=== PATIENT | male | born 1945 | race Caucasian/White ===

== ENCOUNTER 2018-10-20 04:56 | Outpatient (CLI) | payer MEDICARE, BC ==
[~2018-10-20] VITALS: Ht 195.6 cm; Wt 122.5 kg
--- NOTE | ~2018-10-20 | HEMODYNAMI ---
PATIENT:ABRAN RUCKER MEDICAL RECORD: [id number] : 49 LOCATION:[facility] D.2124 ADMISSION DATE: 10/20/18 Generatedon:10/20/201810:53 Patient name: ABRAN RUCKER Patient #: [id number] SSN: : 1945 Date of study: 10/20/2018 Page: Of Hemodynamic Procedure Report Patient Data Patient Demographics Procedure consent was obtained First Name: ABRAN Gender: Male Last Name: ALKA : 1945 [facility] Initial: B Age: 72 year(s) Patient #: [id number] Race: Unknown Additional ID: [id number] Contact details Address: [facility] [address] State: [place] City: [place] Zip code: [address] Admission Admission Data Admission Date: 10/20/2018 Admission Time: 5:33 Room #: D.2124 Lab Results Lab Result Date: 10/20/2018 Lab Result Time: 0:00 Biochemistry Name Units Result Min Max BUN mg/dl 15 --(--*-)-- 7 18 Creatinine mg/dl 1.1 --(--*-)-- 0.6 1.3 eGFR ml/min 70.20700 *-(----)-- 90 120 NONAFRICAN CBC Name Units Result Min Max Hematocrit % 40.3 -*(----)-- 42 54 Hemoglobin g/dl 13.5 --(*---)-- 13.5 17.5 Procedure Procedure Types Cath Procedure Diagnostic Procedure LHC LHC w/Coronaries FFR/IVUS FFR Initial FFR Additional PCI Procedure Coronary Stent Coronary Stent Initial Procedure Description Procedure Date Procedure Date: 10/20/2018 Procedure Start Time: 10:33 Procedure End Time: 10:50 Procedure Staff Name Function Abdiel Grier MD Performing Physician Dimitrios Bowen RT Monitor Raven Gaffney RT Scrub Kenisha Jean-Baptiste RN Nurse Procedure Data Cath Procedure Fluoroscopy Diagnostic fluoroscopy Total fluoroscopy Time: 4.1 time: 4.1 min min Diagnostic fluoroscopy Total fluoroscopy dose: 768 dose: 768 mGy mGy Contrast Material Contrast Material Type Amount (ml) Isovue 300 70 Entry Location Entry Primary Successful Side Size Upsize Upsize Entry Closure [place] ccessful Closure Location (Fr) 1 (Fr) 2 (Fr) Remarks Device Remarks Radial Right 6 Fr Mechanical artery Short Compression Estimated blood loss: 10 ml Diagnostic catheters Device Type Used For End Catheter Placement DIAGNOSTIC [place] 110cm 5 Procedure Fr catheter ([id number]) Procedure Complications No complications Procedure Medications Medication Administration Route Dosage 0.9% NaCl I.V. 100 ml/hr Oxygen etCO2 Nasal cannula 2 l/min Lidocaine 2% added to field 20 Heparin Flush Bag added to field 2 bags (1000units/500ml NS) Radial Cocktail added to field 1 syringe (Verapamil 2mg/Nitro 400mcg/Heparin 1500units) Versed I.V. 2 mg Fentanyl I.V. 50 mcg Heparin Bolus I.V. 4000 units Versed I.V. 2 mg Fentanyl I.V. 50 mcg Hemodynamics Rest HGB: 13.5 (g/dl) Heart Rate: 65 (bpm) Pressure Samples Time Site Value (mmHg) Purpose Heart Use Rate(bpm) 10:42 AO 133/80(104) Snapshot 68 Snapshots Pre Cath Intra NCS Post Cath Vital Signs Time Heart Resp SPO2 etCO2 NIBP (mmHg) Rhythm Pain Sedation Rate (ipm) (%) (mmHg) Status Level (bpm) 10:21:48 66 17 100 38.2 180/96(139) NSR 0 (11) 10(A) , No pain 10:26:25 65 16 100 32.2 169/99(125) NSR 0 (11) 10(A) , No pain 10:30:53 63 14 97 41.2 156/84(133) NSR 0 (11) 10(A) , No pain 10:35:17 64 15 97 39.7 143/84(123) NSR 0 (11) 10(A) , No pain 10:39:35 70 12 98 38.9 138/77(109) NSR 0 (11) 9(A) , No pain 10:43:55 68 14 97 42.7 146/81(117) NSR 0 (11) 9(A) , No pain 10:48:15 66 15 98 36.7 136/85(105) NSR 0 (11) 10(A) , No pain Medications Time Medication Route Dose Verified Delivered Reason Not es Effectiveness by by 10:20:36 0.9% NaCl I.V. 100 Abdiel Kenisha used for ml/hr Cherrie Jean-Baptiste instrument tech 10:20:42 Oxygen etCO2 2 l/min Abdiel Kenisha used for Nasal Cherrie Jean-Baptiste procedure cannula RN 10:20:47 Lidocaine 2% added 20ml Abdiel Abdiel for local to vial Cherrie Grier MD anesthetic field 10:20:52 Heparin Flush added 2 bags Abdiel Abdiel used for Bag to Cherrie Grier MD procedure (1000units/500ml field NS) 10:20:57 Radial Cocktail added 1 Abdiel Abdiel used for (Verapamil to syringe Cherrie Grier MD procedure 2mg/Nitro field 400mcg/Heparin 1500units) 10:32:37 Versed I.V. 2 mg Abdiel Kenisha for sedation Cherrie Jean-Baptiste RN 10:32:43 Fentanyl I.V. 50 mcg Abdiel Kenisha for sedation Cherrie Jean-Baptiste RN 10:37:54 Versed I.V. 2 mg Abdiel Kenisha for sedation Cherrie Jean-Baptiste RN 10:37:56 Fentanyl I.V. 50 mcg Abdiel Kenisha for sedation Cherrie Jean-Baptiste RN 10:40:35 Heparin Bolus I.V. 4000 Abdiel Kenisha for shivani ified units Cherrie Jean-Baptiste anticoagulation with Dr. RACHEL Grier Procedure Log Time Note 9:56:50 Signed procedure consent form obtained from patient. 9:56:51 Diagnostic Cath status Elective 9:56:53 Time tracking: Call back (After hours or weekends) 9:57:05 Plan of Care:Hemodynamics will remain stable., Cardiac rhythm will remain stable., Comfort level will be maintained., Respiratory function will remain adequate., Patient/ family verbilizes understanding of procedure., Procedure tolerated without complication., Recovers from procedure without complications.. 10:04:28 Dimitrios BILL(R) sent for patient. Start room use. 10:07:31 Lab Result : BUN 15 mg/dl 10:07:31 Lab Result : eGFR NONAFRICAN 70.00791 ml/min 10:07:31 Lab Result : Creatinine 1.1 mg/dl 10:07:31 Lab Result : Hemoglobin 13.5 g/dl 10::31 Lab Result : Hematocrit 40.3 % 10:15:25 Patient received from Med II to CCL 1 Alert and oriented. Tansferred to table in Supine position. 10:15:26 Warm blankets applied, and artem hugger turned on for patient comfort. 10:15:27 Correct patient and procedure confirmed by team. 10:15:28 ECG and BP/O2 sat monitors applied to patient. 10:20:27 Vital chart was started 10:20:36 0.9% NaCl 100 ml/hr I.V. was administered by Kenisha Jean-Baptiste RN; used for procedure; 10:20:42 Oxygen 2 l/min etCO2 Nasal cannula was administered by Kenisha Jean-Baptiste RN; used for procedure; 10:20:47 Lidocaine 2% 20ml vial added to field was administered by Abdiel Grier MD; for local anesthetic; 10:20:52 Heparin Flush Bag (1000units/500ml NS) 2 bags added to field was administered by Abdiel Grier MD; used for procedure; 10:20:57 Radial Cocktail (Verapamil 2mg/Nitro 400mcg/Heparin 1500units) 1 syringe added to field was administered by Abdiel Grier MD; used for procedure; 10:27:35 Baseline sample Acquired. 10:27:39 Rhythm: sinus rhythm 10:27:41 Full Disclosure recording started 10:27:48 H&P Date Dictated: 10/20/2018 Within 30 days and on chart.. 10:27:49 Pre-procedure instructions explained to patient. 10:27:50 Pre-op teaching completed and patient verbalized understanding. 10:27:51 Family unavailable. 10:27:53 Patient NPO since Midnight. 10:27:54 Is the patient allergic to Iodine/contrast media? No. 10:27:57 Is patient on blood thinner?Yes 10:28:00 ACC The patient was administered the following blood thiners within the last 24 hours: ACCBrilinta 10:28:02 Patient diabetic? No. 10:28:05 Previous problem with sedation/anesthesia? No ? 10:28:06 Snore? Yes 10:28:07 Sleep apnea? No 10:28:08 Deviated septum? No 10:28:09 Opens mouth fully? Yes 10:28:10 Sticks out tongue? Yes 10:28:12 Airway obstruction? No ? 10:28:15 Dentures? No ? 10:28:19 Pre procedure: right dorsailis pedis pulse 1+ Palpable, but thready & weak; easily obliterated 10:28:22 Modified Harman's test Ulnar < 7 seconds 10:28:24 Patient pain scale 0/10 ?. 10:28:32 IV patent on arrival in left forearm with 0.9% NaCl at O. 10:28:35 Lab results completed and on chart. 10:28:38 Right Radial & Right Groin area was prepped with chlora-prep and draped in sterile fashion 10:28:40 Alarms reviewed by R. N. 10:28:40 Sharps counted by scrub and verified by R.N. 10:29:12 2) 60-89 Mildly reduced kidney function, and other findings (as for stage 1) point to kidney disease. 10:29:16 Maximum allowable contrast does (3.7 X eGFR X 0.75)194 ml. 10:29:26 Use device set Radial Dx or PCI 10:29:28 Tegaderm 4 x 4 (1626W) opened to sterile field. 10:29:29 ACIST Manifold (98763) opened to sterile field. 10:29:31 ACIST Syringe (09540) opened to sterile field. 10:29:31 Medline Cath Pack ([id number]) opened to sterile field. 10:29:32 Bag Decanter (2001S) opened to sterile field. 10:29:32 ACIST Hand Control (83103) opened to sterile field. 10:29:32 MBrace Wrist Support ([id number]) opened to sterile field. 10:29:35 EMERALD Guide Wire (790-314) opened to sterile field. 10:29:36 SHEATH 6FR RAIN (8169718) opened to sterile field. 10:32:05 --------ALL STOP TIME OUT------ 10:32:06 Final Timeout: patient, procedure, and site verified with staff and physician. All members of the team are in agreement. 10:32:08 Right Radial & Right Groin site verified by team. 10:32:12 Fire Safety Assessment: A--An alcohol-based skin anteseptic being used preoperatively., C--Open oxygen or nitrous oxide is being used., D--An ESU, laser, or fiber-optic light is being used. 10:32:15 Physical assessment completed. ASA score P 2 - A patient with mild systemic disease as per Abdiel Grier MD. 10:32:19 Sedation plan: IV Moderate Sedation Medication:Versed, Fentanyl 10:32:37 Versed 2 mg I.V. was administered by Kenisha Jean-Baptiste RN; for sedation; 10:32:43 Fentanyl 50 mcg I.V. was administered by Kenisha Jean-Baptiste RN; for sedation; 10:33:51 Procedure started. 10:33:53 Local anesthetic to right radial artery with Lidocaine 2% by Abdiel Grier MD.INITIAL ACCESS ONLY 10:34:51 A 6 Fr Short sheath was inserted into the Right Radial artery 10:35:24 A DIAGNOSTIC [place] 110cm 5 Fr catheter (855128) was advanced over the wire and used for Procedure. 10:36:59 LV angiography performed. 10:37:00 LV gram done using RASMUSSEN 10:37:05 EF : 60 % 10:37:10 Injector settings: Ml/sec: 5, Volume: 15, 10:37:34 LCA angiography performed. 10:37:54 Versed 2 mg I.V. was administered by Kenisha Jean-Baptiste RN; for sedation; 10:37:56 Fentanyl 50 mcg I.V. was administered by Kenisha Jean-Baptiste RN; for sedation; 10:38:22 RCA angiography performed. 10:38:32 Catheter exchanged over wire. 10:38:36 Use device set [facility] PCI 10:38:48 INFLATOR Merit BasixCompak (PF3634) opened to sterile field. 10:38:52 CHOICE PT Extra Support 182cm wire ([id number]) opened to sterile field. 10:38:53 GUIDE 6FR AR 2.0 catheter (FY2MH45) opened to sterile field. 10:38:56 [place] Verrata Plus pressure wire (47324F) opened to sterile field. 10:40:35 Heparin Bolus 4000 units I.V. was administered by Kenisha Jean-Baptiste RN; for anticoagulation; verified with Dr. Grier 10:40:40 Pre PCI Site: [place] mRCA has 90% stenosis. 10:40:46 6 Fr AR 2 guide catheter was inserted over the wire 10:41:16 CPTXS wire advanced. 10:41:37 Wire advanced across lesion. 10:42:39 Place stent Inflation Number: 1 A MEME RX 3.5 x 38 stent ([id number]) was prepped and advanced across the Mid RCA 90. The stent was deployed at 21 JADIEL for 0:10 (min:sec) 0. 10:43:21 Stent catheter was removed intact over wire. 10:43:21 Wire removed. 10:43:22 Guide catheter removed. 10:43:26 GUIDE 6FR XBLAD 3.5 catheter ([id number]) opened to sterile field. 10:43:34 6 Fr XBLAD 3.5 guide catheter was inserted over the wire 10:44:56 FFR/IFR wire advanced. 10:46:38 mLAD lesion measured at 0.94 with IFR 10:47:13 Wire redirected to DIAG. 10:47:28 Diag1 lesion measured at 0.98 with IFR 10:47:30 Wire removed. 10:48:14 TR BAND Standard ([id number]) opened to sterile field. 10:48:24 Guide catheter removed. 10:48:40 Sheath removed intact; hemostasis achieved with Mechanical Compression to the Right Radial artery. 10:48:43 Procedure ended.(Physican Out) 10:49:01 Fluoroscopy time 04.10 minutes. 10:49:05 Fluoroscopy dose: 768 mGy 10:49:05 Flurop Dose total: 768 10:49:16 Contrast amount:Isovue 300 70ml. 10:49:20 Sharps counted by scrub and verified by R.N. 10:49:22 TR band inflated with 10cc of air. 10:49:23 Insertion/operative site no bleeding no hematoma. 10:49:25 Post Procedure Pulses reassessed and unchanged 10:49:36 Post-procedure physical assessment completed. ASA score P 2 - A patient with mild systemic disease as per Abdiel Grier MD. 10:49:38 Post procedure rhythm: unchanged. 10:49:42 Estimated blood loss: 10 ml 10:49:57 Post procedure instruction explained to patient.Patient verbalizes understanding. 10:49:58 Patient needs reinforcement of post procedure teaching. 10:50:17 Procedure type changed to Cath procedure, Diagnostic procedure, LHC, LHC w/Coronaries, FFR/IVUS, FFR Initial, FFR Additional, PCI procedure, Coronary Stent, Coronary Stent Initial 10:50:29 Procedure and supply charges have been captured, reviewed, submitted and are correct. 10:50:32 Procedure Complication : No complications 10:50:35 Vital chart was stopped 10:50:35 See physician's report for complete and final results. 10:50:42 Report given to [facility]. 10:50:47 Patient transfered to [facility] with Bed. 10:50:54 Procedure ended. 10:50:54 Full Disclosure recording stopped 10:52:23 End room use (Document Last) Intervention Summary Intervention Notes Time ActionType Lesion and Equipment Used Action# Pressure Duration Attributes 10:42:39 Place stent Mid RCA MEME RX 3.5 x 1 21 00:10 38 stent ([id number]) Device Usage Item Name Manufacture Quantity Catalog Number Hospital Part Current Minimal Lot# / Charge Number Stock Stock Serial# Code Tegaderm 4 x 4 3M 1 [id number] [id number] [id number] 5 (1626W) ACIST Manifold Acist 1 22556 045885 754098 074333 5 (27237) Medical Systems Inc ACIST Syringe Acist 1 90165 546667 948682 573110 20 (56761) Medical Systems Inc Medline Cath Medline 1 [id number] 769289 93213 940279 5 Pack ([id number]) Bag Decanter Microtek 1 2002S 708281 73226 150642 5 (2002S) Medical Inc. ACIST Hand Acist 1 38617 070538 191190 230317 5 Control Medical (93852) Systems Inc MBrace Wrist Advanced 1 140-0250-00 726410 99508 111619 5 Support Vascular (267074578) Dynamics EMERALD Guide Cardinal 1 502-455 282151 469518 263561 5 Wire (502455) Health SHEATH 6FR Cardinal 1 6156699 373304 7975888 985971 5 RAIN (9407172) Health DIAGNOSTIC Terumo 1 40-8580 401177 340460 586918 5 [place] 110cm 5 Fr catheter (172216) INFLATOR Merit Merit 1 OW3340 994326 120571 116421 15 [facility] (WX4249) CHOICE PT [place] 1 [id number] 660634 441459 779719 5 Extra Support Scientific 182cm wire ([id number]) GUIDE 6FR AR Medtronic 1 [id number] 548597 58402 634919 1 2.0 catheter (KT4FM50) [place] 1 44119E 732154 172413469 734631 5 Verrata Plus pressure wire (40291N) MEME RX 3.5 x Medtronic 1 [id number] 650440 4032432 748322 5 [id number] 38 stent ([id number]) GUIDE 6FR Cardinal 1 [id number] 201385 968476 306014 10 XBLAD 3.5 Health catheter (44411627) TR BAND Terumo 1 [id number] 532582 804878 562982 40 Standard ([id number]) Signature Audit [place] Stage Time Signature Unsigned Intra-Procedure 10/20/2018 Dimitrios Bowen 10:53:12 AM RT(R) Signatures Performing Physician : Signature : Abdiel Grier MD Date : Time : Monitor : Dimitrios Bowen RT Signature : Date : Time : Nurse : Kenisha Jean-Baptiste RN Signature : Date : Time : [facility] [address] [place], [place] [address]
[2018-10-20] MEDS ORDERED: FLOMAX0.4 MG PO (05:03)
[2018-10-20] MEDS ORDERED: PRAVASTATIN SOD10 MG PO (05:04)
[2018-10-20] MEDS ORDERED: METOPROLOL TART50 MG PO (05:04)
[2018-10-20] MEDS ORDERED: ALTACE10 MG PO (05:04)
[2018-10-20] MEDS ORDERED: BAYER CHEWABLE81 MG PO (05:05)
[2018-10-20 05:21] VITALS: BP 158/84
[2018-10-20 05:42] LABS: PROTIME 12.7 SECONDS (11.6-15.0)
[2018-10-20 05:43] LABS: APTT 36.2 SECONDS (22.8-39.4)
[2018-10-20 05:46] LABS: BASOPHILS 0.2 % (0-2); EOSINOPHILS 1.5 % (0-7); HEMATOCRIT 40.3 % (42.0-54.0); HEMOGLOBIN 13.5 g/dL (13.5-17.5); IMMATURE GRANULOCYTES 0.1 % (0-5); LYMPHOCYTES 42.4 % (15-50); MCH 29.4 pg (26.0-34.0); MCHC 33.5 g/dL (31.0-37.0); MCV 87.8 fL (80.0-100.0); MEAN PLATELET VOLUME 10.2 fL (7.4-10.4); MONOCYTES 8.3 % (2-11); NEUTROPHILS 47.5 % (40-80); PLATELET COUNT 292 10x3/uL (130-400); RBC 4.59 10x6/uL (4.20-6.10); RDW 14.5 % (11.5-14.5); WBC 8.4 10x3/uL (4.8-10.8)
[2018-10-20 05:48] LABS: ALBUMIN 3.6 g/dL (3.4-5.0); ALKALINE PHOSPHATASE 67 U/L (46-116); ALT (SGPT) 27 U/L (10-68); BILIRUBIN - TOTAL 0.69 mg/dL (0.2-1.3); CALC OSMOLALITY 278 mosm/kg (275-300); CARBON DIOXIDE 30.6 mmol/L (21.0-32.0); CHLORIDE - SERUM 104 mmol/L (98-107); CREATININE - SERUM 1.1 mg/dL (0.6-1.3); GLUCOSE 105 mg/dL (74-106); POTASSIUM - SERUM 3.8 mmol/L (3.5-5.1); PROTEIN - SERUM 7.1 g/dL (6.4-8.2); SODIUM 139 mmol/L (136-145); UREA NITROGEN 15 mg/dL (7-18); eGFR NON AFRICAN AMERICAN 70 mL/min (90-120)
[2018-10-20 05:50] VITALS: BP 132/71
[2018-10-20 05:59] LABS: CKMB 1.9 U/L (0.0-3.6); CREATINE KINASE 135 UL (21-232); TROPONIN-I < 0.017 ng/mL (0.000-0.060)
[2018-10-20 06:10] VITALS: BP 112/76
[2018-10-20 06:44] VITALS: BP 141/79; BMI 32.1
[2018-10-20 08:31] VITALS: BP 151/86
--- NOTE | 2018-10-20 10:20 | NUR ---
PT LEFT FOR HEART CATH
[2018-10-20 10:41] VITALS: Ht 195.6 cm; Wt 122.5 kg
--- NOTE | 2018-10-20 10:58 | HP ---
PATIENT: ABRAN LAWLER MEDICAL RECORD: [id number] ACCOUNT: [id number] LOCATION:[address] : [birth year] ADMISSION DATE: 10/20/18 PCP: CHRIS ABEBE MD HISTORY AND PHYSICAL EXAMINATION DIAGNOSES: 1. Unstable angina. 2. Coronary artery disease. 3. Previous percutaneous transluminal coronary angioplasty stent. 4. Hypertension. 5. Hyperlipidemia. 6. Family history of coronary artery disease. HISTORY OF PRESENT ILLNESS: Mr. Lawler presents with multiple days of chest discomfort in a worsening fashion. He had a very severe episode that woke him at 4:00 a.m. just like that of his previous myocardial infarction. His last PTCA stent was approximately 6 years ago. He is on a beta vance and RAMON inhibitor. His heart rates in the 50s; systolic blood pressure is approximately 112; hence, he is on maximal medical therapy. He has been on aspirin. He is a Plavix nonresponder. He was given Brilinta in the ER. He continues to have episodes of chest discomfort this morning. PHYSICAL EXAMINATION: GENERAL APPEARANCE: Well-nourished, well-developed, appears stated age. Level of distress, comfortable. PSYCHIATRIC: Mental status, alert, normal affect. Orientation, oriented to time, place and person. EYES: Lids and conjunctiva, noninjected. No discharge, no pallor. ENT: Lips, teeth, gums, normal dentition. Oropharynx, no cyanosis, no pallor. NECK: Carotid arteries, bilateral normal upstroke, no bruits, no thrills. JUGULAR VEINS: No jugular venous pressure or distention. CERVICAL LYMPH NODES: Nontender, nonenlarged. THYROID: Not enlarged. Nontender. No nodules. LUNGS: Respiratory effort, unlabored. CHEST: Normal curvature. No thoracic deformity. No chest wall tenderness. Percussion, resonant. Auscultation, clear. No wheezes, no rales, no rhonchi. CARDIOVASCULAR: Precordial exam, nondisplaced. No heaves or pericardial thrills. Rate and rhythm, regular. Heart sounds, normal S1, normal S2. No S3, no gallop, no rub. Systolic murmur, not heard. Diastolic murmur, not heard. EXTREMITIES: No cyanosis, no edema. Peripheral pulses, full and equal in all extremities, except as noted. No bruits appreciated. ABDOMEN: Soft, nondistended. Normal aorta. No bruit. Nontender. No masses. Liver, nontender, no hepatomegaly. Spleen, nontender, no splenomegaly. MUSCULOSKELETAL: No joint tenderness. No joint swelling. No erythema. NEUROLOGICAL: Normal gait, normal strength, normal tone. SKIN: Warm and dry. OVERALL IMPRESSION: Unstable angina class IV with rest pain. We will proceed with coronary angiography. Further care depends upon findings of the angiography. TRANSINT:[id number] Voice Confirmation ID: [id number] DOCUMENT ID: [id number] HISTORY AND PHYSICAL [id number] ABRAN LAWLER JEFFREY MD at 1058 CC: [id number] DICTATION DATE: 10/20/1839 DIP BRAZIER: 10/20/18 1019 ADM IN [place] [id number] [place] [id number]
--- NOTE | 2018-10-20 11:11 | NUR ---
PT RETURNED FROM [facility]ANTITATIVE GENETICIST, VSS STABLE AND WNL. CAP REFILL WNL. PT ALERT AND DENIES ANY NEEDS AT THIS TIME, WILL CONT TO FOLLOW POC
--- NOTE | 2018-10-20 11:25 | NUR ---
PT RESTING IN BED, CAP REFILL WNL. VSS AND WN;
--- NOTE | 2018-10-20 11:40 | NUR ---
PT RESTING IN BED, VSS AND WNL. CAP REFILL WNL. WILL CONT TO FOLLOW POC
--- NOTE | 2018-10-20 11:59 | NUR ---
PT RESTING IN BED, VSS AND WNL. CAP REFILL WNL.
--- NOTE | 2018-10-20 12:30 | NUR ---
PT RESTING IN BED, VSS AND WNL. CAP REFILL WNL. WILL CONT TO FOLLOW POC
--- NOTE | 2018-10-20 13:00 | NUR ---
PT RESTING IN BED, VSS AND WNL. CAP REFILL WNL. DENIES ANY NEEDS AT THIS TIME. WILL CONT TO FOLLOW POC
--- NOTE | 2018-10-20 13:31 | NUR ---
PT RESTING IN BED. VSS AND WNL. CAP REFILL WNL. DENIES ANY NEEDS AT THIS TIME, WILL CONT TO FOLLOW POC
[2018-10-20] MEDS ORDERED: BRILINTA90 MG PO (13:41)
[2018-10-20 13:53] VITALS: BP 118/75
--- NOTE | 2018-10-20 15:00 | NUR ---
PT RESTING IN BED, VSS AND WNL. 4CC AIR REMOVED FROM TR BAND PER PROTOCOL NO BLEEDING NOTED AT THIS TIME
--- NOTE | 2018-10-20 16:00 | NUR ---
PT RESTING IN BED, VSS AND WNL. 4CC AIR REMOVED FROM TR BAND AND NO SIGNS OF BLEEDING NOTED AT THIS TIME. CAP REFILL WNL. DENIES ANY NEEDS AT TIME WILL CONT TO FOLLOW POC
--- NOTE | 2018-10-20 16:33 | NUR ---
DISCHARGE INSTRUCTIONS REVIEWED WITH PT AND ALL QUESTIONS ANSWERED. PIV REMOVED WITH CATHETER TIP INTACT. ASSISTED PT TO FRONT OF HOSPITAL VIA WHEELCHAIR. PT LEFT WITH FRIEND
--- NOTE | 2018-10-22 09:20 | MORECARE ---
CASE MANAGEMENT DISCHARGE SUMMARY PATIENT: ABRAN RUCKER UNIT: [id number] ADM DATE: 10/20/18 AGE: 72 : [birth year] SEX: M ROOM/BED: D.2124 AUTHOR: CARLOTA MCCRACKEN PHYSICIAN: REFERRING PHYSICIAN: STEFAN MARTÍNEZ MD DATE OF SERVICE: 10/22/18 Discharge Plan Patient Name: ABRAN RUCKER [facility] [facility] 1945 Planned Disposition: Home Anticipated Discharge Date: 10/20/18 Discharge Date: 10/20/2018 Expected LOS: 1 Initial Reviewer: [email or web address] Initial Review Date: 10/22/2018 Generated: 10/22/18 10:20 am Patient Name: ABRAN RUCKER Page 23599 at 0920 All edits/amendments must be made on the electronic document DICTATION DATE: 10/22/18919 CORPORATE ASSOCIATE: JAMIN 10/22/18919 RPT#: [id number] DC DATE:10/20/18 STATUS: DIS IN [facility] [address] [place] [address] END OF REPORT
--- NOTE | 2018-10-26 11:13 | OP ---
PATIENT NAME: ABRAN RUCKER MEDICAL RECORD: [id number] :[birth year] LOCATION:D.CAT ADMISSION DATE: SURGEON: STEFAN MARTÍNEZ MD DATE OF OPERATION: 10/20/2018 PROCEDURES: 1. PTCA stent RCA. 2. IFR. 3. Left heart catheterization. 4. Selective coronary angiography. 5. Left ventriculogram. INDICATION: Unstable angina and coronary artery disease. PROCEDURE PERFORMED: After informed consent was obtained and after a detailed explanation of risks, benefits as well as alternative therapies, the patient elected to proceed with angiogram and angioplasty. The right femoral area was prepped and draped in normal sterile fashion. Right femoral artery was cannulated via modified Seldinger technique with placement of 6-Divehi sheath. All catheters exchanged through this sheath. FINDINGS: The left ventriculogram was performed in a standard 30-degree RASMUSSEN view, reveals good cardiac wall motion, ejection fraction is 60%. SELECTIVE CORONARY ANGIOGRAPHY: 1. Left main has no significant angiographic disease. 2. Left anterior descending has a previously placed stent with questionable in-stent restenosis; however, IFR was normal in the LAD and the diagonal. 3. Left circumflex has moderate irregularities, but no flow-limiting stenosis. 4. The right coronary has previously placed stent; however, after the stent, there is definitely greater than 80% stenosis in the mid vessel. PTCA STENT OF THE RCA: The stent used was a 3.5 x 38 mm Novi taken to 21 atmospheres. Result was 0% residual stenosis. OVERALL IMPRESSION: Successful percutaneous transluminal coronary angioplasty stent of the right coronary artery going from greater than 80% initial stenosis to 0% residual. TRANSINT:[id number] Voice Confirmation ID: [id number] DOCUMENT ID: [id number] STEFAN MARTÍNEZ MD at 1113 CC: [id number] DICTATION DATE: 10/20/18 1052 PIPE ORGAN MECHANIC APPRENTICE: 10/20/18 1132 DEP CLI 10/20/18 [place] [id number]
--- NOTE | 2018-10-26 11:13 | DS ---
PATIENT:ABRAN LAWLER :[birth year] MEDICAL RECORD: [id number] DISCHARGE SUMMARY ADMISSION DATE: 10/20/18 DISCHARGE DATE: 10/20/18 DIAGNOSES: 1. Unstable angina. 2. Coronary artery disease. 3. Percutaneous transluminal coronary angioplasty stent right coronary artery this admission. HOSPITAL COURSE: Mr. Lawler presents with anginal symptomatology, underwent cardiac catheterization revealing significant disease of the RCA, underwent successful PTCA stent of the RCA. He had no further anginal symptomatology. Discharged home with the addition of Brilinta to his medical regimen. TRANSINT:[id number] Voice Confirmation ID: [id number] DOCUMENT ID: [id number] STEFAN MARTÍNEZ MD at 1113 CC: [id number] DICTATION DATE: 10/20/18 1053 SENIOR PEOPLESOFT DEVELOPER: 10/20/18 1109 DEP CLI 10/20/18 [place] [id number] [place] [address]
== END 2018-10-20 16:37 | disposition home or self-care (01) ==
LOC: OBSVTIME → D.ER 04:56 → D.CATH 04:56 → D.ER 05:33 → OBSVTIME 05:33 → D.M2 05:33 → D.ER 06:20 → EDSTATUS 12:01 → D.CATH 16:37 → D.M2 16:37
PROVIDERS: Family Medicine; ATTEND Internal Medicine Interventional Cardiology
DX: I25.110 Atherosclerotic heart disease of native coronary artery with unstable angina pectoris (principal); E78.5 Hyperlipidemia, unspecified; Z82.49 Family history of ischemic heart disease and other diseases of the circulatory system
CPT/HCPCS: 93458; 93571; 93572; C9600